=== PATIENT | male | born 1945 | race Caucasian/White ===

== ENCOUNTER → 2016-09-22 | Outpatient (CLI) | payer OTHER ==
[~2016-09-22] MED LIST: ATOR-22 PO; BTP80 PO; CHOL100010 PO; DABI150C PO; DILT-113 PO; FLM4 PO; HYDR-3983 PO; IBUP-1050 PO; MELO15TA10 PO; ONDA8TAB6 PO; SOTA80TA PO
[2016-09-22 13:29] LABS: PARTIAL THROMBOPLASTIN RATIO 1.7
== END | disposition home or self-care (01) ==
LOC: C.LAB 12:21
DX: M16.12 Unilateral primary osteoarthritis, left hip (principal)

== ENCOUNTER 2016-10-01 09:04 | Inpatient (IN) | payer OTHER ==
[2016-09-21 09:26] VITALS: BMI 26.0
[2016-09-21 09:38] VITALS: BMI 26.0
--- NOTE | 2016-09-21 09:59 | PAT Medication Instructions ---
Service Date Sep 21, 2016. Current Home Medication List Atorvastatin (Lipitor), 20 MG PO QAM Cholecalciferol (Vitamin D), 1,000 INTER.UNIT PO Q2D Dabigatran Etexilate Mesylate (Pradaxa), 150 MG PO BID Diltiazem Hcl Ext Rel (Tiazac), 180 MG PO QAM Ibuprofen (Advil), 600 MG PO TID PRN for RN Sotalol Hcl (Betapace *), 40 MG PO BID Tamsulosin Hcl (Flomax *), 0.4 MG PO QPM Medication Instructions For Your Scheduled Surgery Dabigatran Etexilate Mesylate (Pradaxa), 150 MG PO BID (check with surgeon/ master of ceremonies for instructions) Ibuprofen (Advil), 600 MG PO TID PRN for RN (check with surgeon for instructions ) - Hold the following medications the morning of surgery: Cholecalciferol (Vitamin D), 1,000 INTER.UNIT PO Q2D - Take the following medications the morning of surgery with a sip of water: Sotalol Hcl (Betapace *), 40 MG PO BID Diltiazem Hcl Ext Rel (Tiazac), 180 MG PO QAM Atorvastatin (Lipitor), 20 MG PO QAM - Take the following medications as scheduled the night before surgery: Tamsulosin Hcl (Flomax *), 0.4 MG PO QPM Sotalol Hcl (Betapace *), 40 MG PO BID If you have any questions please call us at [phone] (Diane Graham PA-C) or [phone] or [phone]
--- NOTE | 2016-09-21 10:44 | DIAGNOSTIC IMAGING REPORT ---
CHEST PREADMISSION(PA/LAT) CLINICAL HISTORY: PAT COMPARISON STUDY: 01/12/2012 FINDINGS: The bones soft tissues and hemidiaphragms are normal. The cardiomediastinal silhouette is normal. The lungs are clear. The pulmonary vasculature is normal. Prior placement of a cardiac pacer with leads in good position IMPRESSION: Negative chest. Electronically signed by: Tawanda Arellano M.D. 09/21/2016 10:42 AM Dictated Date/Time: 09/21/2016 10:41 AM
[2016-09-21 10:52] LABS: BASO % 0.4 %; BASO ABS # 0.02 K/uL (0-0.2); COMPLETE YES; HEMATOCRIT 39.9 % (42-52); IG% 0.2 %; LYMPH % 24.6 %; LYMPH ABS # 1.15 K/uL (1.2-3.4); MEAN CELL VOLUME 93.7 fL (80-100); MEAN CORPUSCULAR HEMOGLOBIN 32.9 pg (25-34); MEAN CORPUSCULAR HGB CONC 35.1 g/dl (32-36); MEAN PLATELET VOLUME 9.9 fL (7.4-10.4); MONO % 12.8 %; PLATELET COUNT 199 K/uL (130-400); RED BLOOD COUNT 4.26 M/uL (4.7-6.1); WHITE BLOOD COUNT 4.68 K/uL (4.8-10.8)
[2016-09-21 11:07] LABS: URINE APPEARANCE CLEAR (CLEAR); URINE BILIRUBIN NEG (NEG); URINE COLOR YELLOW; URINE NITRITE NEG (NEG); URINE PH 6.5 (4.5-7.5); URINE SPECIFIC GRAVITY 1.009 (1.000-1.030); UROBILINOGEN NEG (NEG)
[2016-09-21 11:17] LABS: INR 1.2 (0.9-1.1); PARTIAL THROMBOPLASTIN RATIO 1.8; PROTHROMBIN TIME (PATIENT) 13.4 SECONDS (9.0-12.0)
[2016-09-21 11:22] LABS: MANUAL MICROSCOPIC REQUIRED? NO; REVIEW REQ? NO
[2016-09-21 12:02] LABS: ESTIMATED AVERAGE GLUCOSE 105 mg/dl; HA1C FLAG Normal (Normal)
--- NOTE | 2016-09-30 12:19 | HISTORY & PHYSICAL EXAMINATION ---
DATE OF ADMISSION: 10/01/2016 CHIEF COMPLAINT: Left hip pain. HISTORY OF PRESENT ILLNESS: The patient is a 71-year-old gentleman with known severe osteoarthritis about his left hip. He had a previous right hip replacement approximately 15 years ago which has done well. He has significant pain and disability with activities of daily living and now desires to proceed with left total hip arthroplasty as well. PAST MEDICAL HISTORY: Irregular heartbeat, osteoarthritis, enlarged prostate. PAST SURGICAL HISTORY: Low back surgery x2, pacemaker implant, right rotator cuff, left rotator cuff x2, right hip as above, bilateral carpal tunnel surgery, right hand surgery. MEDICATIONS: Sotalol 80 mg half tablet 2 times daily, tamsulosin 0.4 mg daily, vitamin D 4000 units weekly, ibuprofen 200 mg 3 capsules 3 times daily p.r.n., Meloxicam 15 mg daily, Pradaxa 150 mg twice daily, Cardizem 180 mg daily, and Lipitor 20 mg daily. ALLERGIES: SULFA WHICH CAUSES A RASH, AMITRIPTYLINE WHICH CAUSES RASH, CEPHALEXIN WHICH CAUSES A RASH. SOCIAL HISTORY: He states weekly alcohol use. REVIEW OF SYSTEMS: Noncontributory. PHYSICAL EXAMINATION: GENERAL: Well-nourished, well-developed elderly male who appears his stated age. HEAD, EYES, EARS, NOSE, AND THROAT: Normocephalic, atraumatic. Extraocular movements intact. Oropharynx pink and moist. NECK: Supple without adenopathy. LUNGS: Clear to auscultation bilaterally. HEART: Regular rate and rhythm. ABDOMEN: Soft, nontender, nondistended. EXTREMITIES: The upper extremities are within normal limits. Left hip demonstrates limited range of motion. There is significant limitation of active and passive internal/external rotation with pain. X-RAYS: X-rays were reviewed. He has a well-aligned, well-fixed total hip on the right. He has instrumentation in his lumbar spine. Left hip demonstrates severe osteoarthritis with complete loss of the joint space. There is osteophyte formation about the femoral head and acetabulum. ASSESSMENT: Left hip degenerative joint disease. PLAN: Risks versus benefits were discussed. Consent was obtained. The patient's primary care physician is Dr. Mccarthy. His physical trainer is Dr. Nazario. Will proceed with left total hip arthroplasty upon preoperative workup and medical clearance. [facility] HEALTH SYSTEMDelmer
[~2016-10-01] VITALS: Ht 165.1 cm; Wt 76.8 kg
[2016-10-01] MEDS: TRANEXAMIC ACID INJ 1,000 MG in SODIUM CHLORIDE 0.9% 100ML 100 ML IV SCH ×2 (06:30→12:00)
[~2016-10-01 09:04] MED LIST changes: +ACETAMINOPHEN 500 MG TAB PO SCH; +BUPIVACAINE 0.5 % 5 MG/1 ML PF 10ML VIAL ONE; +DEXAMETHASONE 4 MG TAB PO SCH; +FAMOTIDINE 20 MG TAB PO SCH; -HYDR-3983 PO; +LACTATED RINGER'S 1000ML 1,000 ML IV SCH; +LACTATED RINGER'S 1000ML 500 ML IV ONE; -MELO15TA10 PO; +MIDAZOLAM HCL 1 MG/ML 2ML VIAL ONE; +MISSING PHYSICIAN SIGNATURE ON ORDER SCH; -ONDA8TAB6 PO; +ROPIVACAINE 5MG/ML 30 ML 150 MG, BUPIVACAINE/EPINEPHR 0.5% MPF 30 ML, KETOROLAC TROMETH... INFIL SCH; -SOTA80TA PO; +VANCOMYCIN 1GM/270ML NSS 270 ML IV SCH; +VANCOMYCIN INJ 1,100 MG in SODIUM CHLORIDE 0.9% 250ML 250 ML IV SCH
[2016-10-01 09:41] VITALS: BP 155/98; PULSE 136; TEMP 36.6; O2SAT 98; BMI 26.0
--- NOTE | 2016-10-01 09:53 | History & Physical Bridge Note ---
H&P Re-Evaluation Bridge Note: I have examined the patient, reviewed the History & Physical and in the interval since the performance of the History & Physical I have noted the following changes of clinical significance: No changes noted
[2016-10-01] MEDS ORDERED: METOPROLOL TARTRATE 1 MG/ML VIAL ONE ×2 (10:32→10:40)
--- NOTE | 2016-10-01 11:17 | Anesthesiology Progress Note ---
Anesthesia Progress Note Date of Service Oct 01, 2016. Progress Notes The patient was scheduled for a L MICHAEL by Dr. Hughes. Upon arrival, the preop nurse noted that he was tachycardic on his rhythm strip. A 12 lead EKG was ordered that showed new onset aflutter with RVR at a rate of 137. The patient' s other vital signs were stable. SpO2 98 with BP 140s/100s. The patient has no chest pain or SOB. He feels fine otherwise. Dr. Herr was consulted and came to evaluate the patient. The patient was given a total of 15 mg IV metoprolol which brought his HR down to 127. The patient will be admitted overnight to telemetry where Dr. Herr will attempt to control his HR. He will be placed on a heparin gtt. The patient may have the procedure tomorrow if he is able to be rate controlled overnight and his other vital signs remain stable.
[2016-10-01] MEDS ORDERED: SOTALOL HCL 80 MG TAB PO ONE (11:30)
[2016-10-01] MEDS ORDERED: POLYETHYLENE (MIRALAX) 17 GM PACK PO PRN (11:45)
[2016-10-01] MEDS ORDERED: MELO15TA10 PO (11:45)
[2016-10-01] MEDS ORDERED: ONDANSETRON INJ 2 MG/ML 2 ML VIAL IV PRN (11:45)
[2016-10-01] MEDS ORDERED: ACETAMINOPHEN 325 MG TAB PO PRN (11:45)
--- NOTE | 2016-10-01 12:12 | CARDIOLOGY CONSULTATION ---
DATE OF CONSULTATION: 10/01/2016 DATE OF CONSULTATION: 10/01/2016. REFERRING PHYSICIAN: Dr. Hughes. PRIMARY CARE PHYSICIAN: Dr. Mccarthy. PRIMARY INSPECTOR PLUG SEAM: Dr. Nazario. INDICATIONS: Atrial flutter with rapid ventricular response. HISTORY OF PRESENT ILLNESS: The patient is a 71-year-old male whose past medical history is notable for paroxysmal Afib flutter with past tachybrady syndrome on chronic anticoagulation with Pradaxa, chronic antiarrhythmic therapy with sotalol, controlled predominantly in sinus rhythm though notes having increasing episodes of atrial flutter on pacemaker interrogations in the past several months. He presented this morning after routine evaluation as an outpatient in the preoperative setting for planned orthopedic surgery. On presentation to the preoperative area, he was found to be in atrial flutter with rapid ventricular response, rates 125 to 135. The patient is asymptomatic and not aware of the irregular heart rhythm but does feel "jittery" or jumping when heart is beating such. Anticoagulation has been held for 5 days in anticipation of orthopedic procedure. Notes no acute neurologic complaints. Notes no chest pain, shortness of breath. Notes no fevers, chills or productive cough. Notes no melena, hematochezia, dysuria or hematuria. Has been taking medications faithfully and took medications as recommended this morning. Appetite and weight have been stable. REVIEW OF SYSTEMS: Otherwise negative. ALLERGIES: AMITRIPTYLINE, CEPHALEXIN, SULFA. MEDICATIONS: Prior to presentation were tamsulosin 0.4 mg p.o. daily, Pradaxa 150 mg b.i.d., diltiazem 180 mg p.o. daily, atorvastatin 20 mg p.o. daily, sotalol 40 mg b.i.d., ibuprofen p.r.n., vitamin D p.r.n. PAST SURGICAL HISTORY: Notable for prior dual chamber pacemaker insertion in 2011, past right hip replacement in 2003, lumbar disc surgery in 2008, repair rotator cuff in 2007 x3, re-operated lumbar area 2012, carpal tunnel surgery bilaterally. FAMILY HISTORY: Notable for hypertension and father history of stroke. SOCIAL HISTORY: The patient is a prior smoker, discontinued in 1993. He drinks 2-3 beers per day on occasion. PHYSICAL EXAMINATION: GENERAL: The patient is currently comfortable, seen in the preoperative holding area. VITAL SIGNS: Heart rate as noted was 130, blood pressure is 162/100. HEAD, EYES, EARS, NOSE, AND THROAT EXAMINATION: Normocephalic, atraumatic. Nares without discharge. NECK: Thin. There is no distinct jugular venous distention. LUNGS: Reveal diminished breath sounds that are clear. CARDIOVASCULAR EXAMINATION: Irregular, irregular. There is no S3 gallop. Pacemaker site is without tenderness. ABDOMEN: Soft, nontender. EXTREMITIES: Without cyanosis or clubbing. There is no peripheral edema. There are intact distal pulses. LABORATORY DATA: Pending. EKG demonstrates atrial flutter with rapid ventricular response, rate 137 with 2:1 AV conduction. Telemetry after 15 mg IV metoprolol demonstrated only minimal slowing, transient break to 4:1 conduction atrial flutter. EKG preoperatively demonstrated atrial paced rhythm with prolonged AV conduction as appropriate. QT corrected was 471. IMPRESSION: A 71-year-old male presents with planned orthopedic surgery, found to have relapsed into prior history of atrial flutter with rapid ventricular response on presentation. PLAN: Will increase sotalol dosing. Will admit to hospital with IV heparin with anticoagulation. Keep n.p.o. after midnight with reassessment of the orthopedic plans in a.m. depending on clinical course, rate control and rhythm control. Electrolytes and laboratory studies will be ordered. Will follow patient in the hospital.
[2016-10-01 12:23] LABS: BASO % 0.4 %; BASO ABS # 0.02 K/uL (0-0.2); COMPLETE YES; EOS % 4.4 %; HEMATOCRIT 39.4 % (42-52); LYMPH % 24.4 %; LYMPH ABS # 1.33 K/uL (1.2-3.4); MEAN CELL VOLUME 92.7 fL (80-100); MEAN CORPUSCULAR HEMOGLOBIN 32.2 pg (25-34); MEAN CORPUSCULAR HGB CONC 34.8 g/dl (32-36); MEAN PLATELET VOLUME 10.1 fL (7.4-10.4); MONO % 8.8 %; PLATELET COUNT 174 K/uL (130-400); RED BLOOD COUNT 4.25 M/uL (4.7-6.1); WHITE BLOOD COUNT 5.46 K/uL (4.8-10.8)
[2016-10-01 12:29] LABS: INR 1.1 (0.9-1.1); PROTHROMBIN TIME (PATIENT) 11.9 SECONDS (9.0-12.0)
[2016-10-01 12:30] VITALS: BP 155/82; PULSE 84; TEMP 36.6; O2SAT 97; Ht 165.1 cm; Wt 76.8 kg
[2016-10-01] MEDS ORDERED: HEPARIN IV BOLUS 4,000 UNIT in SYRINGE 0 ML IV ONE (12:30)
[2016-10-01 12:45] LABS: BUN/CREATININE RATIO 11.8 (10-20); CALCIUM 8.9 mg/dl (8.5-10.1); CREATININE 1.1 mg/dl (0.60-1.40); MAGNESIUM 2.1 mg/dl (1.8-2.4); POTASSIUM 4.7 mmol/L (3.5-5.1)
[2016-10-01 12:56] LABS: ALB/GLOB RATIO 1.3 (0.9-2); THYROID STIMULATING HORMONE 0.792 uIu/ml (0.300-4.500)
[2016-10-01 13:01] LABS: PARTIAL THROMBOPLASTIN RATIO 1.1
[2016-10-01] MEDS: HEPARIN 25,000 UNIT/500ML D5W 500 ML IV PRN ×2 (13:07→20:25)
--- NOTE | 2016-10-01 13:08 | History and Physical ---
History & Physical Date & Time of Service: Oct 01, 2016 at 12:03 Chief Complaint: Left Hip Osteoarthritis Primary Care Physician: Tawanda Mccarthy M.D. History of Present Illness Source: patient, hospital records This is a 71 y/o male with PMH of paroxysmal Afib on Pradaxa, tachy dylon syndrome s/p pacemaker, BPH, severe OA left hip, who presented today for planned left hip replacement and was found to be in atrial flutter with RVR. Pt c/o left hip pain but otherwise is feeling well. He admits to some anxiety coming in for surgery this morning. He typically is not able to tell when he is in AF. He denies GARCIA, vision change, numbness, weakness, lightheadedness, palpitations, chest pain, SOB, DEL ANGEL, orthopnea, edema, weight gain, fever, chills , URI symptoms, cough, abdominal pain, N/V/D, urinary changes, rash, abnormal bleeding. No hx of HTN, DM, CHF, or CVA. Past Medical/Surgical History Medical Problems: (1) BPH (benign prostatic hypertrophy) Status: Chronic (2) Fibromyalgia Status: Chronic (3) Hyperlipidemia Status: Chronic (4) Osteoarthritis Status: Chronic (5) Paroxysmal atrial fibrillation Status: Chronic (6) Tachy-dylon syndrome Status: Chronic Surgical Problems: (1) History of carpal tunnel surgery Status: Chronic (2) History of right hip replacement Status: Chronic (3) S/P cardiac pacemaker procedure Status: Chronic (4) S/P finger joint replacement Status: Chronic (5) S/P lumbar fusion Status: Chronic (6) S/P rotator cuff repair Status: Chronic Family History Hypertension FATHER MOTHER Stroke FATHER Social History Smoking Status: Former Smoker (quit 1990 prior 1 ppd x 30 years) Alcohol Use: none (4 beers per day. last drink yesterday. no hard liquor. denies h/o withdrawal/ tremors. advised to decrease etoh intake. ) Drug Use: none Housing status: lives alone Occupational Status: employed Immunizations History of Influenza Vaccine: Yes Influenza Vaccine Date: May 22, 2012 History of Tetanus Vaccine?: Yes History of Pneumococcal: Yes Pneumococcal Date: May 22, 2002 History of Hepatitis B Vaccine: Yes Multi-Drug Resistant Organisms History of MDRO: No Allergies Coded Allergies: Sulfa Drugs (Verified Allergy, Intermediate, HIVES, 09/21/16) ALL SULFIDES Amitriptyline (Verified Allergy, Unknown, rash, 09/21/16) Cephalexin (Verified Allergy, Unknown, rash, 09/21/16) Home Medications Scheduled Atorvastatin (Lipitor), 20 MG PO QAM Cholecalciferol (Vitamin D), 1,000 INTER.UNIT PO Q2D Dabigatran Etexilate Mesylate (Pradaxa), 150 MG PO BID Diltiazem Hcl Ext Rel (Tiazac), 180 MG PO HS Meloxicam (Mobic), 1 TAB PO DAILY Sotalol Hcl (Betapace *), 40 MG PO BID Tamsulosin Hcl (Flomax *), 0.4 MG PO QPM Scheduled PRN Ibuprofen (Advil), 600 MG PO TID PRN for Pain Review of Systems Ten point ROS performed with pertinent positives and negatives noted in HPI. Physical Exam Vital Signs Date Time Temp Pulse Resp B/P Pulse Ox O2 Delivery O2 Flow Rate FiO2 10/01/16 11:50 64 20 146/78 97 Room Air 10/01/16 11:45 36.7 127 20 137/107 97 Room Air 10/01/16 11:35 125 20 150/104 97 Room Air 10/01/16 11:27 112 20 140/96 97 Room Air 10/01/16 11:20 126 20 155/103 99 Room Air 10/01/16 11:09 122 20 162/104 96 Room Air 10/01/16 10:56 20 131/101 100 Nasal Cannula 2 10/01/16 10:50 137 20 156/104 100 Nasal Cannula 2 10/01/16 10:45 137 20 150/105 99 Nasal Cannula 2 10/01/16 10:38 138 156/109 10/01/16 10:35 138 22 156/109 99 Nasal Cannula 2 10/01/16 10:25 20 155/110 100 Nasal Cannula 2 10/01/16 10:20 121 20 151/84 99 Nasal Cannula 2 10/01/16 10:15 137 22 150/105 100 Nasal Cannula 2 10/01/16 10:07 140/97 10/01/16 10:05 137 20 149/101 98 Room Air 10/01/16 10:00 137 20 137/94 98 Room Air 10/01/16 09:41 36.6 136 20 155/98 98 Room Air General Appearance: WD/WN, no apparent distress, + pertinent finding (pleasant alert 71 y/o male, daughter at bedside) Head: normocephalic, atraumatic Eyes: normal inspection, PERRL, EOMI ENT: hearing grossly normal, pharynx normal Neck: supple, no JVD, trachea midline Respiratory/Chest: lungs clear, normal breath sounds, no respiratory distress, + pertinent finding (pacemaker in place) Cardiovascular: no murmur, normal peripheral pulses, + tachycardia, + irregularly irregular Abdomen/GI: normal bowel sounds, non tender, soft Extremities/Musculoskelatal: no calf tenderness, no pedal edema Neurologic/Psych: alert, normal mood/affect, oriented x 3, + pertinent finding (grossly nonfocal ) Skin: normal color, warm/dry Diagnostics Laboratory Results Results Past 24 Hours Test 10/01/16 11:19 10/01/16 11:35 10/01/16 11:42 Range/Units EKG aflutter with RVR rate 137 with 2:1 AV conduction Impression Assessment and Plan ATRIAL FLUTTER WITH RVR Noted in perioperative setting when presented for planned L hip replacement Pradaxa has been held for 5 days for upcoming surgery HR up to 130s -> Given total 15 mg IV Lopressor -> improved to 110s Check CBC, PRP, mag, TSH, UA Cardiology consulted and has seen patient; appreciate input Sotalol increased to 80 mg BID Initiate IV heparin NPO after midnight HYPERTENSION BP elevated ? secondary to anxiety, hip pain PRN hydralazine ordered for SBP >160 LEFT HIP OA [place] ordered for pain control NPO after midnight in case he is stable for surgery tomorrow Consult Dr. Saul HOOD DYLON SYNDROME S/P PACEMAKER HYPERLIPIDEMIA Continue statin BPH Continue Flomax VIT D DEFICIENCY Continue Vit D supplementation FULL CODE per my discussion with the patient Patient seen in collaboration with Dr. Castillo. Please see her addendum. ADDENDUM: I have seen and examined the patient and have discussed the case with the provider above. I agree with the assessment and plan as stated. At 1400, the patient converted into sinus rhythm. Labs were reviewed and were within normal limits. Defer rate and rhythm control strategies to Dr. Herr. If maintains sinus rhythm, will likely be considered OK for surgery in am. Ordered NPO after midnight in preparation for this. Of note, patient reports 4 beers daily, so will be monitor closely for withdrawal symptoms which may be related to aflutter. Graciela Castillo DO Hospitalist Level of Care Telemetry Advanced Directives Existing Living Will: Yes Existing Power of Travel Money Advisor: Yes Resuscitation Status FULL RESUSCITATION VTE Prophylaxis VTE Risk Assessment Done? Y/N: Yes Risk Level: Moderate Given or contraindicated: Other Anticoagulation (heparin infusion)
[2016-10-01] MEDS ORDERED: HydrALAZINE HCL 20 MG/ML VIAL IV. PRN (13:15)
[2016-10-01 15:17] VITALS: BP 126/75; PULSE 65; TEMP 37.2; O2SAT 95
[2016-10-01 15:33] LABS: URINE APPEARANCE CLEAR (CLEAR); URINE BILIRUBIN NEG (NEG); URINE COLOR YELLOW; URINE NITRITE NEG (NEG); URINE SPECIFIC GRAVITY 1.006 (1.000-1.030); UROBILINOGEN NEG (NEG); ZZUR CULT IF INDIC CLEAN CATCH NO
[2016-10-01 15:40] LABS: MANUAL MICROSCOPIC REQUIRED? NO; REVIEW REQ? NO
[2016-10-01] MEDS: SOTALOL HCL 80 MG TAB PO SCH (16:12)
[2016-10-01 19:17] VITALS: BP 125/50; PULSE 70; TEMP 36.8; O2SAT 96
[2016-10-01] MEDS: TAMSULOSIN HCL 0.4 MG CAP PO SCH (19:26)
[2016-10-01 19:50] LABS: PARTIAL THROMBOPLASTIN RATIO 1.7
[2016-10-01] MEDS ORDERED: HEPARIN IV BOLUS 3,000 UNIT in SYRINGE 0 ML IV SCH (20:15)
[2016-10-01 23:44] VITALS: BP 138/74; PULSE 64; TEMP 37; O2SAT 96
[2016-10-02] VITALS (11 sets, daily range): BP systolic 103–163; BP diastolic 54–77; PULSE 58–90; TEMP 36.4–37; O2SAT 93–97
[2016-10-02 02:50] LABS: PARTIAL THROMBOPLASTIN RATIO 2.4
[2016-10-02] MEDS ORDERED: HEPARIN IV BOLUS 3,000 UNIT in SYRINGE 0 ML IV ONE (03:00)
[2016-10-02] MEDS ORDERED: BUPIVACAINE 0.5 % 5 MG/1 ML PF 10ML VIAL ONE (08:05)
[2016-10-02] MEDS: SOTALOL HCL 80 MG TAB PO SCH ×2 (08:46→16:52)
[2016-10-02] MEDS: TAMSULOSIN HCL 0.4 MG CAP PO SCH (08:47)
[2016-10-02] MEDS: ATORVASTATIN 20 MG TAB PO SCH (08:47)
[2016-10-02] MEDS: CHOLECALCIFEROL 1000 INTER.UNIT TAB PO SCH (08:47)
--- NOTE | 2016-10-02 10:35 | PROGRESS NOTE ---
DATE: 10/02/2016 CARDIOLOGY CONSULTATION FOLLOWUP NOTE SUBJECTIVE: The patient seen and examined. Chart, medications, telemetry reviewed. SUBJECTIVE: The patient feels well this morning. Notes no difficulties or complaints. He spontaneously converted back to sinus rhythm yesterday afternoon and has had no further atrial fibrillation or flutter. Notes no dizziness or lightheadedness. Blood pressure is up just slightly this morning and dissipates on proceeding with left hip replacement as planned later today. Anticoagulation has been held this morning. OBJECTIVE: Is VITAL SIGNS: Heart rate 60, blood pressure is 163/77. Telemetry reveals sinus rhythm with intermittent atrial pacing. No further tachyarrhythmias. NECK: Thin. There is no jugular venous distention at 30 degrees. LUNGS: Clear. CARDIOVASCULAR: Regular with normal S1, S2. There is no S3 gallop. ABDOMEN: Soft, nontender. EXTREMITIES: Without cyanosis or clubbing. There is no peripheral edema. LABORATORY DATA: EKG this morning demonstrates sinus rhythm with atrial ectopy, intermittent atrial pacing, and nonspecific lateral ST-segment changes. IMPRESSION: The patient is a 71-year-old male with history of paroxysmal atrial fibrillation and flutter with tachybrady syndrome, controlled, predominantly in sinus rhythm with sotalol. He presented for planned elective left hip replacement, off anticoagulation and yesterday was found to be in atrial flutter with rapid ventricular response on initial presentation. The patient since adjustments of medical therapies has spontaneous return to sinus rhythm. He has been anticoagulated with IV heparin overnight which will be held in anticipation of proceeding with left hip surgery. Will plan on maintaining telemetry at least 2-3 days post-surgery given adjustment to sotalol upward. Medications will be optimized during this hospitalization, specifically diltiazem has been discontinued and sotalol has been increased to 80 mg twice per day. We will anticipating adding DEVI inhibitor during this course of admission for blood pressure maintenance as an outpatient. Not administered today in anticipation of upcoming surgery. Will follow the patient in the hospital. KELSY
[2016-10-02] MEDS ORDERED: POVIDONE-IODINE OP SOLN 30 ML BTL ONE (11:33)
[2016-10-02] MEDS ORDERED: ORTHO JOINT ANESTHETIC ONE (11:33)
[2016-10-02] MEDS ORDERED: BACITRACIN 50000 UNIT VIAL ONE (11:34)
[2016-10-02] MEDS ORDERED: ONDANSETRON INJ 2 MG/ML 2 ML VIAL ONE (11:46)
[2016-10-02] MEDS ORDERED: DEXAMETHASONE SOD INJ 4 MG/ML VIAL ONE (11:46)
[2016-10-02] MEDS ORDERED: FENTANYL CITRATE INJ 50 MCG/1 ML 2 ML VIAL ONE (11:46)
[2016-10-02] MEDS ORDERED: ROCURONIUM BROMIDE 10 MG/ML 5 ML VIAL ONE (11:46)
[2016-10-02] MEDS ORDERED: MIDAZOLAM HCL 1 MG/ML 2ML VIAL ONE ×2 (11:46→12:52)
[2016-10-02] MEDS ORDERED: PHENYLEPHRINE HCL INJ 10 MG/ML VIAL ONE (11:46)
[2016-10-02] MEDS ORDERED: NEOSTIGMINE METHYLSULFATE 5 MG/5 ML SYR ONE (11:46)
[2016-10-02] MEDS ORDERED: GLYCOPYRROLATE INJ 0.2 MG/ML VIAL ONE (11:46)
[2016-10-02] MEDS ORDERED: PROPOFOL IV EMULSION 10 MG/ML 20 ML VIAL IV ONE ×2 (11:46→13:12)
[2016-10-02] MEDS ORDERED: LIDOCAINE HCL 2% 2 ML VIAL (20MG/ML) ONE (11:46)
[2016-10-02] MEDS ORDERED: SUCCINYLCHOLINE CHLORIDE 20 MG/ML 10 ML VIAL IV ONE (11:46)
[2016-10-02] MEDS ORDERED: EpHEDrine SULFATE INJ 50 MG/ML AMP ONE (11:46)
[2016-10-02] MEDS ORDERED: ROPIVACAINE 5MG/ML 30 ML 150 MG, BUPIVACAINE/EPINEPHR 0.5% MPF 30 ML, KETOROLAC TROMETH... INFIL SCH ×7 (12:00)
[2016-10-02] MEDS ORDERED: CEFAZOLIN IV 2,000 MG/60 ML D5W IV ONE (12:03)
--- NOTE | 2016-10-02 12:17 | Progress Note ---
Internal Med Progress Note Date of Service: Oct 02, 2016. Provider Documentation: SUBJECTIVE: Patient is doing well Denies any palpitations, chest pain, SOB, nausea, vomiting Tele- NSR,Rate controlled OBJECTIVE: Vital Signs-as noted below Exam: General-AAOX3, no distress Neck-Supple, No JVD Lungs-AEBE, no wheezing, crackles Heart-S1, S2 normal, no murmurs Extremities-No edema Lab data as noted below. ASSESSMENT & PLAN: Assessment and Plan : ATRIAL FLUTTER WITH RVR: Now NSR Noted in perioperative setting when presented for planned L hip replacement Pradaxa has been held for 5 days for upcoming surgery HR up to 130s -> Given total 15 mg IV Lopressor -> Increased Sotalol to 80 mg PO BID -Cardiology on board. Appreciate inputs LEFT HIP OA For surgery today -Consult Dr. Hughes HYPERTENSION -Stable -PRN hydralazine ordered for SBP >160 TACHY RENUKA SYNDROME S/P PACEMAKER -Mx as above HYPERLIPIDEMIA -Continue statin BPH -Continue Flomax VIT D DEFICIENCY -Continue Vit D supplementation FULL CODE per my discussion with the patient DISPOSITION Continue with tele monitoring post operatively Vital Signs: Date Time Temp Pulse Resp B/P Pulse Ox O2 Delivery O2 Flow Rate FiO2 10/02/16 07:32 36.8 60 20 163/77 96 Room Air 10/02/16 04:00 Room Air 10/02/16 03:45 36.8 62 19 134/73 95 Room Air 10/02/16 00:00 Room Air 10/01/16 23:44 37.0 64 17 138/74 96 Room Air 10/01/16 20:00 Room Air 10/01/16 19:17 36.8 70 16 125/50 96 Room Air 10/01/16 16:00 Room Air 10/01/16 15:17 37.2 65 18 126/75 95 Room Air 10/01/16 12:30 36.6 84 20 155/82 97 Room Air Lab Results: Results Past 24 Hours Test 10/01/16 15:10 10/01/16 19:22 10/02/16 02:16 10/02/16 05:50 Range/Units Urine Color YELLOW Urine Appearance CLEAR CLEAR Urine pH 6.0 4.5-7.5 Urine Specific [place] 1.006 1.000-1.030 Urine Protein NEG NEG Urine Glucose (UA) NEG NEG Urine Ketones NEG NEG Urine Occult Blood NEG NEG Urine Nitrite NEG NEG Urine Bilirubin NEG NEG Urine Urobilinogen NEG NEG Urine Leukocyte Esterase NEG NEG Activated Partial Thromboplast Time 43.5 62.0 52.8 21.0-31.0 SECONDS Partial Thromboplastin Ratio 1.7 2.4 2.0 Test 10/02/16 12:03 Range/Units
[2016-10-02] MEDS ORDERED: ATROPINE SULFATE 0.1 MG/ML 5ML SYR IV PRN (12:30)
[2016-10-02] MEDS ORDERED: FENTANYL CITRATE INJ 50 MCG/1 ML 2 ML VIAL IV PRN (12:30)
[2016-10-02] MEDS ORDERED: EpHEDrine SULFATE INJ 50 MG/ML AMP IV PRN (12:30)
[2016-10-02] MEDS ORDERED: ONDANSETRON INJ 2 MG/ML 2 ML VIAL IV PRN ×2 (12:30→14:30)
[2016-10-02 12:35] LABS: INR 1.1 (0.9-1.1); PARTIAL THROMBOPLASTIN RATIO 1.1; PROTHROMBIN TIME (PATIENT) 11.8 SECONDS (9.0-12.0)
[2016-10-02] MEDS ORDERED: NURSING VERBAL MED ORDER STA (12:46)
[2016-10-02] MEDS: TRANEXAMIC ACID INJ 1,000 MG in SODIUM CHLORIDE 0.9% 100ML 100 ML IV SCH ×2 (13:00→13:10)
[2016-10-02] MEDS ORDERED: HydrALAZINE HCL 20 MG/ML VIAL ONE (13:12)
--- NOTE | 2016-10-02 14:25 | [facility] Post Operative Brief Note ---
Immediate Operative Summary Operative Date Oct 02, 2016. Pre-Operative Diagnosis Left hip degenerative joint disease Post-Operative Diagnosis Left hip degenerative joint disease Procedure(s) Performed Left total hip arthroplasty- Uncemented Surgeon Dr. Shlomo Hughes Sugar Mixer Surgeon(s) None Estimated Blood Loss 150ML Findings severe OA Specimens A. Left Femur head Disposition Recovery Room / PACU
[2016-10-02] MEDS ORDERED: MAGNESIUM HYDROXIDE SUSP 30 ML UDC PO PRN (14:30)
[2016-10-02] MEDS ORDERED: BISACODYL 10 MG SUPP PR PRN (14:30)
[2016-10-02] MEDS ORDERED: ALUMINUM/MAGNESIUM/SIMETH (MAALOX MAX) 30 ML UDC PO PRN (14:30)
[2016-10-02] MEDS ORDERED: ZOLPIDEM TARTRATE 5 MG TAB PO PRN (14:30)
[2016-10-02] MEDS ORDERED: DiphenhydrAMINE HCL 50 MG/ML VIAL IV PRN (14:30)
--- NOTE | 2016-10-02 14:48 | DIAGNOSTIC IMAGING REPORT ---
LEFT PELVIS/UNILATERAL HIP 1 VIEW CLINICAL HISTORY: IN PACU - A/P PELVIS and LATERAL HIP INCLUDING ALL OF IMPLANT joint replacement COMPARISON: None. DISCUSSION: Evidence for a total left hip replacement. Good contact between prosthetic and underlying bone. Surgical drains are in position. Evidence for total right hip replacement. Postoperative changes involving the low lumbar spine. Expected soft tissue postoperative change IMPRESSION: Anatomic alignment status post total left hip replacement Electronically signed by: Tawanda Arellano M.D. 10/02/2016 2:47 PM Dictated Date/Time: 10/02/2016 2:46 PM
--- NOTE | 2016-10-02 15:08 | Anesthesiology Progress Note ---
Anesthesia Post Op Note Date & Time Oct 02, 2016 at 15:07 Vital Signs Pain Intensity: 0 Vital Signs Past 12 Hours Date Time Temp Pulse Resp B/P Pulse Ox O2 Delivery O2 Flow Rate FiO2 10/02/16 14:59 37 10/02/16 14:56 16 147/68 10/02/16 14:55 60 14 100 10/02/16 14:55 60 14 10/02/16 14:50 60 14 10/02/16 14:50 60 14 149/70 100 10/02/16 14:45 61 14 10/02/16 14:45 60 14 152/65 100 10/02/16 14:41 151/64 10/02/16 14:40 59 17 10/02/16 14:40 64 17 100 10/02/16 14:36 132/92 10/02/16 14:35 60 17 10/02/16 14:35 Room Air 10/02/16 14:35 60 17 100 10/02/16 14:30 68 17 10/02/16 14:30 61 17 137/84 100 10/02/16 14:26 129/66 10/02/16 14:25 36.6 63 16 129/66 100 Mask 10 10/02/16 08:00 96 Room Air 2.0 10/02/16 07:32 36.8 60 20 163/77 96 Room Air 10/02/16 04:00 Room Air 10/02/16 03:45 36.8 62 19 134/73 95 Room Air Notes Mental Status: alert / awake / arousable, participated in evaluation Pt Amnestic to Procedure: Yes Nausea / Vomiting: adequately controlled Pain: adequately controlled Airway Patency, RR, SpO2: stable & adequate BP & HR: stable & adequate Hydration State: stable & adequate Neuraxial Anesthesia: was administered, sensory block is resolving Anesthetic Complications: no major complications apparent
--- NOTE | 2016-10-02 16:29 | OPERATIVE REPORT ---
DATE OF OPERATION: 10/01/2016 PREOPERATIVE DIAGNOSIS: Osteoarthritis, left hip. POSTOPERATIVE DIAGNOSIS: Osteoarthritis, left hip. PROCEDURE: Left connective total hip arthroplasty. SURGEON: Dr. Hughes. SINTER PRESS OPERATOR: Jose Ribera PA-C. ANESTHESIA: spinal COMPLICATIONS: None. PROCEDURE: Following induction of adequate spional anesthesia, the patient was placed in right lateral decubitus position and left Jeremias-Langenbeck incision was made. Subcutaneous tissue was sharply dissected. Electrocautery used for hemostasis. The fascia was incised throughout the length of the wound and a campuzano scissor placed beneath the short external rotators. The pyriformis was tagged with #1 Vicryl. The short external rotators were divided from the posterior aspect of the femur using electrocautery. These were swept posteriorly. A T-capsulotomy incision was made and the hip was dislocated using a combination of flexion, adduction, and internal rotation. Exposure of the femoral neck with old-style Hohmann and a blunt Hohmann was carried out and a femoral rasp was utilized as a guide for making the appropriate level femoral neck cut. This bone fragment was removed and reserved on the back table. Next, attention was turned to the acetabulum where bone hook was used to retract the femur while the offset retractors were placed anterior and posteriorly. A double-angled Hohmann was placed in superior and anterior position exposing the acetabulum nicely. Acetabular labrum as well as posterior capsule elements were removed using a long knife and a long pickup. Fovea centralis was cleared of all soft tissue. Sequential reamings were carried up to a 52 and decision was made to proceed with impaction of a 52 trabecular metal cup. This was impacted and held using a single 35 mm bone screw. The acetabular liner was placed with 15 of elevated posterior wall in the superior and posterior position. Next, attention was turned to the femoral portion of the case where a Bovie and pickup was used to further clear short external rotators from their insertion on the femur. Box osteotome was used to gain access to the femoral canal and the T-handled rasp and a rattail rasp were used to further open and lateral the canal. Sequentially raspings were carried up to a 52 which gave good fit and fill of the proximal femur. A trial reduction was carried out and 4 offset femoral neck component was chosen as the size to be used. A -5 mm ceramic femoral head was impacted into position, +0 head was utilized. The trial reduction was stable in all degrees of rotation with no [id number] impingement. The hip was dislocated. The trial components were removed and the final femoral stem, neck, and femoral head combination were assembled on the back table and impacted into position. Hip was relocated. Range of motion checked once again successful and the wound was irrigated. The pyriformis repaired to the greater trochanter using #1 Vicryl [id number] suture. A Hemovac drain was placed and the fascia was closed using #1 Vicryl, subcutaneous tissue was closed using 0 Dexon, and skin was closed with dinora. Sterile dressing of Adaptic, 4 x 4's, ABDs, and foam tape was applied. The patient tolerated the procedure well. Due to the complex nature of the procedure, the entire surgery was performed with the operational assistance of Jose Ribera PA-C. The assistant manager pt, under direct supervision, was involved in the actual performance of all aspects of the surgical procedure including hemostasis, tissue retraction and incision, instrument management, patient positioning, and wound closure. I attest to the content of the Intraoperative Record and any orders documented therein. Any exceptions are noted below. KELSY
[2016-10-02] MEDS: FERROUS GLUCONATE 324 MG TAB PO SCH (16:49)
[2016-10-02] MEDS: HYDROCODONE/ACETAMINOPHEN 7.5/325MG TAB PO PRN ×3 (17:51→23:48)
[2016-10-02] MEDS: DOCUSATE SODIUM 100 MG CAP PO SCH (20:56)
[2016-10-02] MEDS: SENNA 8.6 MG TAB PO SCH (20:56)
[2016-10-02] MEDS ORDERED: NURSING VERBAL MED ORDER ONE (21:30)
[2016-10-02] MEDS ORDERED: HYDROmorphone INJ 1 MG/ML SYR IV STA (21:40)
[2016-10-02] MEDS ORDERED: KETOROLAC TROMETHAMINE 15 MG/ML VIAL IV. STA (21:41)
[2016-10-02] MEDS ORDERED: VANCOMYCIN INJ 1,100 MG in SODIUM CHLORIDE 0.9% 250ML 250 ML IV ONE (22:00)
[2016-10-03] VITALS (7 sets, daily range): BP systolic 96–159; BP diastolic 54–69; PULSE 61–82; TEMP 36.4–36.9; O2SAT 91–99
[2016-10-03] MEDS ORDERED: HYDROmorphone INJ 0.5 MG/0.5 ML SYR ONE (03:36)
[2016-10-03 05:38] LABS: HEMATOCRIT 35.2 % (42-52); MEAN CELL VOLUME 93.1 fL (80-100); MEAN CORPUSCULAR HEMOGLOBIN 32.5 pg (25-34); MEAN CORPUSCULAR HGB CONC 34.9 g/dl (32-36); MEAN PLATELET VOLUME 9.6 fL (7.4-10.4); PLATELET COUNT 165 K/uL (130-400); RED BLOOD COUNT 3.78 M/uL (4.7-6.1); WHITE BLOOD COUNT 10.56 K/uL (4.8-10.8)
[2016-10-03 06:06] LABS: BUN/CREATININE RATIO 17.6 (10-20); CALCIUM 8.4 mg/dl (8.5-10.1); CREATININE 1.2 mg/dl (0.60-1.40); POTASSIUM 4.3 mmol/L (3.5-5.1)
[2016-10-03] MEDS: HYDROCODONE/ACETAMINOPHEN 7.5/325MG TAB PO PRN ×2 (08:50→17:03)
[2016-10-03] MEDS: DOCUSATE SODIUM 100 MG CAP PO SCH ×2 (08:50→20:27)
[2016-10-03] MEDS: SOTALOL HCL 80 MG TAB PO SCH ×2 (08:50→17:00)
[2016-10-03] MEDS: ATORVASTATIN 20 MG TAB PO SCH (08:50)
[2016-10-03] MEDS: FERROUS GLUCONATE 324 MG TAB PO SCH ×3 (08:51→17:03)
--- NOTE | 2016-10-03 09:15 | Cardiology Follow-Up ---
Subjective Subjective Date of Service: Oct 03, 2016. Pt evaluation today including: conversation w/ patient, physical exam, chart review, lab review, review of studies, review of inpatient medication list Additional Details: Pt seen and examined, states that he is in significant hip pain. Denies cardiac complaint. Specifically denies cp, sob, palpitations, lightheadedness or dizziness. Tele reviewed: sinus rhythm with occasional a-pacing. Review of Systems Respiratory: No cough, No dyspnea at rest, No dyspnea on exertion, No hemoptysis, No problem reported, No see HPI, No shortness of breath, No sputum, No wheezing Cardiac: No PND, No chest pain, No claudication, No edema, No orthopnea, No palpitations, No problem reported, No see HPI Objective Vital Signs Last Vital Signs Documentation Date Time Temp Pulse Resp B/P Pulse Ox O2 Delivery O2 Flow Rate FiO2 10/03/16 07:31 36.7 61 18 151/69 98 Room Air 10/02/16 14:25 10 Physical Exam: General Appearance: WD/WN, + mild distress (secondary to pain) Eyes: bilateral eyes EOMI, bilateral eyes PERRL, bilateral eyes normal inspection ENT: normal ENT inspection, hearing grossly normal, pharynx normal Neck: supple, no adenopathy, thyroid normal, no JVD, no carotid bruits, trachea midline Respiratory/Chest: chest non-tender, lungs clear, normal breath sounds, no respiratory distress, no accessory muscle use Cardiovascular: regular rate, rhythm, no edema, no JVD, no murmur, + gallop/S4 Abdomen: normal bowel sounds, non tender, soft, no organomegaly, no pulsatile mass Extremities: no pedal edema, no calf tenderness Neurologic/Psychiatric: coat baster II-XII nml as tested, no motor/sensory deficits, alert, normal mood/affect, oriented x 3 Skin: normal color, warm/dry, no rash Lymphatic: no adenopathy Assessment and Plan 1. paroxysmal atrial flutter has remained in sinus tolerating increased sotalol dosage QTc stable no ventricular arrhythmias daily ecg on heparin gtt, ok to change back to pradaxa once ok with ortho 2. s/p hip surgery receiving pain control ok to go off monitor for PT cont to monitor on tele
[2016-10-03] MEDS ORDERED: NURSING VERBAL MED ORDER ONE (10:30)
--- NOTE | 2016-10-03 10:34 | Progress Note ---
Internal Med Progress Note Date of Service: Oct 03, 2016. Provider Documentation: SUBJECTIVE: Patient is c/o pain and numbness in left leg - surgical site Denies any palpitations, chest pain, SOB, nausea, vomiting Tele- Sinus rhythm OBJECTIVE: Vital Signs-as noted below Exam: General-AAOX3, no distress Neck-Supple, No JVD Lungs-AEBE, no wheezing, crackles Heart-S1, S2 normal, no murmurs Extremities-No edema Lab data as noted below. ASSESSMENT & PLAN: Assessment and Plan : ATRIAL FLUTTER WITH RVR : Now NSR Noted in perioperative setting when presented for planned L hip replacement Pradaxa has been held for 5 days for upcoming surgery HR up to 130s on presentation -> Given total 15 mg IV Lopressor -> Increased Sotalol to 80 mg PO BID -Cardiology on board. Appreciate inputs LEFT HIP OA POD # 1 -Pain mx per primary team -Orthopedics on board. HYPERTENSION -Stable -PRN hydralazine ordered for SBP >160 TACHY RENUKA SYNDROME S/P PACEMAKER -Mx as above HYPERLIPIDEMIA -Continue statin BPH -Continue Flomax VIT D DEFICIENCY -Continue Vit D supplementation FULL CODE per my discussion with the patient DISPOSITION Continue with tele monitoring Vital Signs: Date Time Temp Pulse Resp B/P Pulse Ox O2 Delivery O2 Flow Rate FiO2 10/03/16 07:31 36.7 61 18 151/69 98 Room Air 10/03/16 04:00 Room Air 10/03/16 03:27 36.4 61 17 122/63 95 Room Air 10/02/16 23:59 Room Air 10/02/16 23:34 37.0 58 18 125/66 95 Room Air 10/02/16 20:00 Room Air 10/02/16 19:43 36.9 90 20 121/69 97 Room Air 10/02/16 18:39 36.5 60 18 103/55 94 Room Air 10/02/16 17:39 36.5 61 16 105/54 94 Room Air 10/02/16 16:56 36.4 62 16 127/56 95 Room Air 10/02/16 16:39 36.4 60 16 160/72 96 Room Air 10/02/16 16:09 36.4 65 16 144/69 93 Room Air 10/02/16 16:00 96 Room Air 10/02/16 15:45 161/75 10/02/16 15:42 60 11 10/02/16 15:42 62 11 99 10/02/16 15:40 163/72 10/02/16 15:37 60 13 10/02/16 15:37 60 13 98 10/02/16 15:35 158/71 10/02/16 15:32 62 16 99 10/02/16 15:32 60 16 10/02/16 15:30 160/70 10/02/16 15:27 60 13 10/02/16 15:27 60 13 99 10/02/16 15:25 153/67 10/02/16 15:22 60 9 100 10/02/16 15:22 60 9 10/02/16 15:21 158/65 10/02/16 15:17 60 12 99 10/02/16 15:17 60 12 10/02/16 15:16 154/68 10/02/16 15:15 60 13 99 10/02/16 15:15 62 13 10/02/16 15:11 148/66 10/02/16 15:10 60 14 10/02/16 15:10 62 14 98 10/02/16 15:06 144/60 10/02/16 15:05 61 13 98 10/02/16 15:05 60 13 10/02/16 15:01 150/68 10/02/16 15:00 60 14 10/02/16 15:00 61 14 100 10/02/16 14:59 37 10/02/16 14:56 16 147/68 10/02/16 14:55 60 14 100 10/02/16 14:55 60 14 10/02/16 14:50 60 14 10/02/16 14:50 60 14 149/70 100 10/02/16 14:45 61 14 10/02/16 14:45 60 14 152/65 100 10/02/16 14:41 151/64 10/02/16 14:40 59 17 10/02/16 14:40 64 17 100 10/02/16 14:36 132/92 10/02/16 14:35 60 17 10/02/16 14:35 Room Air 10/02/16 14:35 60 17 100 10/02/16 14:30 68 17 10/02/16 14:30 61 17 137/84 100 10/02/16 14:26 129/66 10/02/16 14:25 36.6 63 16 129/66 100 Mask 10 Lab Results: Results Past 24 Hours Test 10/02/16 12:11 10/03/16 05:10 Range/Units Prothrombin Time 11.8 9.0-12.0 SECONDS Prothromb Time International Ratio 1.1 0.9-1.1 Activated Partial Thromboplast Time 27.5 26.4 21.0-31.0 SECONDS Partial Thromboplastin Ratio 1.1 1.0 White Blood Count 10.56 4.8-10.8 K/uL Red Blood Count 3.78 4.7-6.1 M/uL Hemoglobin 12.3 14.0-18.0 g/dL Hematocrit 35.2 42-52 % Mean Corpuscular Volume 93.1 80-100 fL Mean Corpuscular Hemoglobin 32.5 25-34 pg Mean Corpuscular Hemoglobin Concent 34.9 32-36 g/dl RDW Standard Deviation 41.7 36.4-46.3 fL RDW Coefficient of Variation 12.3 11.5-14.5 % Platelet Count 165 130-400 K/uL Mean Platelet Volume 9.6 7.4-10.4 fL Sodium Level 143 136-145 mmol/L Potassium Level 4.3 3.5-5.1 mmol/L Chloride Level 111 98-107 mmol/L Carbon Dioxide Level 22 21-32 mmol/L Anion Gap 10.0 3-11 mmol/L Blood Urea Nitrogen 21 7-18 mg/dl Creatinine 1.20 0.60-1.40 mg/dl Est Creatinine Clear Calc Drug Dose 49.8 ml/min Estimated GFR () 70.6 Estimated GFR (Non- 60.9 BUN/Creatinine Ratio 17.6 10-20 Random Glucose 116 70-99 mg/dl Calcium Level 8.4 8.5-10.1 mg/dl
[2016-10-03] MEDS ORDERED: KETOROLAC TROMETHAMINE 15 MG/ML VIAL IV. SCH (10:45)
[2016-10-03] MEDS ORDERED: HYDROmorphone INJ 0.5 MG/0.5 ML SYR IV SCH (10:45)
--- NOTE | 2016-10-03 10:52 | Orthopedic Progress Note ---
Orthopedic Progress Note Date of Service Oct 03, 2016. Subjective Post OP Day: 1 Reports: complaints (States the SCD seems to be bothering the LLE below his knee.), feeling well, pain controlled w PO medications, Denies: SOB, calf pain, chest pain, light headedness, nausea / vomiting Objective calves soft nontender, N/V intact, hip located, capillary refill less than 2 sec., dressing C/D/I, A&O x3, toes mobile Patient is lying comfortably in bed. Left calf is soft and nontender. Nurse was present during visit and the SCD was loosened and the strap for the abduction pillow was also loosened. Date Time Temp Pulse Resp B/P Pulse Ox O2 Delivery O2 Flow Rate FiO2 10/03/16 07:31 36.7 61 18 151/69 98 Room Air 10/03/16 04:00 Room Air 10/03/16 03:27 36.4 61 17 122/63 95 Room Air 10/02/16 23:59 Room Air 10/02/16 23:34 37.0 58 18 125/66 95 Room Air 10/02/16 20:00 Room Air 10/02/16 19:43 36.9 90 20 121/69 97 Room Air 10/02/16 18:39 36.5 60 18 103/55 94 Room Air 10/02/16 17:39 36.5 61 16 105/54 94 Room Air 10/02/16 16:56 36.4 62 16 127/56 95 Room Air 10/02/16 16:39 36.4 60 16 160/72 96 Room Air 10/02/16 16:09 36.4 65 16 144/69 93 Room Air 10/02/16 16:00 96 Room Air 10/02/16 15:45 161/75 10/02/16 15:42 60 11 10/02/16 15:42 62 11 99 10/02/16 15:40 163/72 10/02/16 15:37 60 13 10/02/16 15:37 60 13 98 10/02/16 15:35 158/71 10/02/16 15:32 62 16 99 10/02/16 15:32 60 16 10/02/16 15:30 160/70 10/02/16 15:27 60 13 10/02/16 15:27 60 13 99 10/02/16 15:25 153/67 10/02/16 15:22 60 9 100 10/02/16 15:22 60 9 10/02/16 15:21 158/65 10/02/16 15:17 60 12 99 10/02/16 15:17 60 12 10/02/16 15:16 154/68 10/02/16 15:15 60 13 99 10/02/16 15:15 62 13 10/02/16 15:11 148/66 10/02/16 15:10 60 14 10/02/16 15:10 62 14 98 10/02/16 15:06 144/60 10/02/16 15:05 61 13 98 10/02/16 15:05 60 13 10/02/16 15:01 150/68 10/02/16 15:00 60 14 10/02/16 15:00 61 14 100 10/02/16 14:59 37 10/02/16 14:56 16 147/68 10/02/16 14:55 60 14 100 10/02/16 14:55 60 14 10/02/16 14:50 60 14 10/02/16 14:50 60 14 149/70 100 10/02/16 14:45 61 14 10/02/16 14:45 60 14 152/65 100 10/02/16 14:41 151/64 10/02/16 14:40 59 17 10/02/16 14:40 64 17 100 10/02/16 14:36 132/92 10/02/16 14:35 60 17 10/02/16 14:35 Room Air 10/02/16 14:35 60 17 100 10/02/16 14:30 68 17 10/02/16 14:30 61 17 137/84 100 10/02/16 14:26 129/66 10/02/16 14:25 36.6 63 16 129/66 100 Mask 10 Laboratory Results 24 Hours: Test 10/02/16 12:11 10/03/16 05:10 Prothromb Time International Ratio 1.1 Prothrombin Time 11.8 SECONDS Hematocrit 35.2 % Hemoglobin 12.3 g/dL Assessment & Plan Assessment: POD #1 s/p Left MICHAEL Plan: PT/OT Will restart Pradaxa today per recommendation of cardiology. D/C planning. Inhouse Planning Pain Management: [place] (7.5/325 mg) DVT Prophylaxis: TEDs, SCDs, other (Pradaxa) Discharge Planning Discharge Planning: uncertain (Would like home with home health)
[2016-10-03] MEDS: PANTOprazole SOD 40 MG TAB PO SCH (11:23)
[2016-10-03] MEDS: MULTIVITAMIN TAB PO SCH (11:23)
[2016-10-03] MEDS: TAMSULOSIN HCL 0.4 MG CAP PO SCH (20:28)
[2016-10-03] MEDS: SENNA 8.6 MG TAB PO SCH (20:28)
[2016-10-03] MEDS: DABIGATRAN ELEXILATE 75 MG CAP PO SCH (20:28)
[2016-10-03] MEDS ORDERED: ASPIRIN 81 MG ECTAB PO SCH (21:00)
[2016-10-04 04:30] VITALS: BP 115/64; PULSE 59; TEMP 36.6; O2SAT 96
[2016-10-04 05:54] LABS: PARTIAL THROMBOPLASTIN RATIO 1.4
[2016-10-04 07:40] VITALS: BP 125/61; PULSE 60; TEMP 36.8; O2SAT 97
[2016-10-04] MEDS: MULTIVITAMIN TAB PO SCH (08:34)
[2016-10-04] MEDS: ATORVASTATIN 20 MG TAB PO SCH (08:34)
[2016-10-04] MEDS: DOCUSATE SODIUM 100 MG CAP PO SCH ×2 (08:34→21:09)
[2016-10-04] MEDS: FERROUS GLUCONATE 324 MG TAB PO SCH ×3 (08:34→17:39)
[2016-10-04] MEDS: PANTOprazole SOD 40 MG TAB PO SCH (08:34)
[2016-10-04] MEDS: DABIGATRAN ELEXILATE 75 MG CAP PO SCH ×2 (08:35→21:10)
[2016-10-04] MEDS: SOTALOL HCL 80 MG TAB PO SCH ×2 (08:35→17:02)
[2016-10-04] MEDS: CHOLECALCIFEROL 1000 INTER.UNIT TAB PO SCH (08:35)
[2016-10-04] MEDS: HYDROCODONE/ACETAMINOPHEN 7.5/325MG TAB PO PRN ×2 (08:57→21:11)
--- NOTE | 2016-10-04 10:01 | Orthopedic Progress Note ---
Orthopedic Progress Note Date of Service Oct 04, 2016. Subjective Post OP Day: 2 Reports: feeling well, pain controlled w PO medications, Denies: SOB, calf pain , chest pain, complaints, light headedness, nausea / vomiting Objective calves soft nontender, N/V intact, hip located, capillary refill less than 2 sec., dressing C/D/I, A&O x3, toes mobile Date Time Temp Pulse Resp B/P Pulse Ox O2 Delivery O2 Flow Rate FiO2 10/04/16 08:36 Room Air 10/04/16 07:40 36.8 60 18 125/61 97 Room Air 10/04/16 04:30 36.6 59 18 115/64 96 Room Air 10/04/16 04:00 Room Air 10/03/16 23:59 Room Air 10/03/16 23:47 36.7 61 18 121/63 97 Room Air 10/03/16 20:05 36.8 64 20 117/69 91 Room Air 10/03/16 20:00 Room Air 10/03/16 16:18 36.9 82 20 96/58 96 Nasal Cannula 2.0 10/03/16 16:01 Room Air 10/03/16 12:51 62 99 10/03/16 12:00 Room Air 10/03/16 11:35 36.6 67 20 159/54 97 Room Air Assessment & Plan Assessment: POD #2 s/p Left MICHAEL Plan: PT/OT Will restart Pradaxa today per recommendation of cardiology. D/C planning--patient may be moved back to ortho floor today. If he continues to do well, plan for d/c home tomorrow, 3..17. Inhouse Planning Pain Management: [place] (7.5/325 mg) DVT Prophylaxis: TEDs, SCDs, other (Pradaxa) Discharge Planning Discharge Planning: home with home health (Tomorrow if he continues to do well. ) DVT Prophylaxis: TEDs, other (Pradaxa)
--- NOTE | 2016-10-04 11:07 | Progress Note ---
Internal Med Progress Note Date of Service: Oct 04, 2016. Provider Documentation: SUBJECTIVE: Patient is doing much better today. Pain is well controlled Denies any palpitations, chest pain, SOB, nausea, vomiting Tele- NSR OBJECTIVE: Vital Signs-as noted below Exam: General-AAOX3, no distress Neck-Supple, No JVD Lungs-AEBE, no wheezing, crackles Heart-S1, S2 normal, no murmurs Extremities-S/P Left hip replacement Lab data as noted below. ASSESSMENT & PLAN: Assessment and Plan : ATRIAL FLUTTER WITH RVR --> NSR Noted in perioperative setting when presented for planned L hip replacement Pradaxa had been held for 5 days prior to surgery ----> Restarted post operatively on 10/03/16 evening per cardio/OK with ortho S/P 15 mg IV Lopressor in ED for HR 130s on presentation ---> Increased Sotalol to 80 mg PO BID--> Continue -Cardiology on board. Appreciate inputs. LEFT HIP OA POD # 2 -Pain mx per primary team -Orthopedics on board. HYPERTENSION -Stable -PRN hydralazine ordered for SBP >160 TACHY RENUKA SYNDROME S/P PACEMAKER -Mx as above HYPERLIPIDEMIA -Continue statin BPH -Continue Flomax VIT D DEFICIENCY -Continue Vit D supplementation FULL CODE per my discussion with the patient DISPOSITION Continue with tele monitoring Vital Signs: Date Time Temp Pulse Resp B/P Pulse Ox O2 Delivery O2 Flow Rate FiO2 10/04/16 08:36 Room Air 10/04/16 07:40 36.8 60 18 125/61 97 Room Air 10/04/16 04:30 36.6 59 18 115/64 96 Room Air 10/04/16 04:00 Room Air 10/03/16 23:59 Room Air 10/03/16 23:47 36.7 61 18 121/63 97 Room Air 10/03/16 20:05 36.8 64 20 117/69 91 Room Air 10/03/16 20:00 Room Air 10/03/16 16:18 36.9 82 20 96/58 96 Nasal Cannula 2.0 10/03/16 16:01 Room Air 10/03/16 12:51 62 99 10/03/16 12:00 Room Air 10/03/16 11:35 36.6 67 20 159/54 97 Room Air Lab Results: Results Past 24 Hours Test 10/04/16 05:30 Range/Units Activated Partial Thromboplast Time 35.7 21.0-31.0 SECONDS Partial Thromboplastin Ratio 1.4
[2016-10-04 12:30] VITALS: BP 125/55; PULSE 70; TEMP 37.1; O2SAT 100
--- NOTE | 2016-10-04 13:01 | Cardiology Follow-Up ---
Subjective Subjective Date of Service: Oct 04, 2016. Pt evaluation today including: conversation w/ patient, conversation w/ family , chart review, lab review, review of studies, review of inpatient medication list Additional Details: Pt seen and examined, oob in chair. States that he's feeling much better today. Hip pain improved. Denies cp, sob, palpitations, lightheadedness or dizziness. Tele reviewed: sinus rhythm without arrhythmia or significant ectopy Review of Systems Respiratory: No cough, No dyspnea at rest, No dyspnea on exertion, No hemoptysis, No problem reported, No see HPI, No shortness of breath, No sputum, No wheezing Cardiac: No PND, No chest pain, No claudication, No edema, No orthopnea, No palpitations, No problem reported, No see HPI Objective Vital Signs Last Vital Signs Documentation Date Time Temp Pulse Resp B/P Pulse Ox O2 Delivery O2 Flow Rate FiO2 10/04/16 12:30 37.1 70 20 125/55 100 Room Air 10/03/16 16:18 2.0 Physical Exam: General Appearance: WD/WN, + mild distress ENT: normal ENT inspection, hearing grossly normal, pharynx normal Neck: supple, no adenopathy, thyroid normal, no JVD, no carotid bruits, trachea midline Respiratory/Chest: chest non-tender, lungs clear, normal breath sounds, no respiratory distress, no accessory muscle use Cardiovascular: regular rate, rhythm, no edema, no JVD, no murmur, + gallop/S4 Abdomen: normal bowel sounds, non tender, soft, no organomegaly, no pulsatile mass Extremities: no pedal edema, no calf tenderness Neurologic/Psychiatric: filteration operator II-XII nml as tested, no motor/sensory deficits, alert, normal mood/affect, oriented x 3 Skin: normal color, warm/dry, no rash Lymphatic: no adenopathy Assessment and Plan 1. paroxysmal atrial flutter has remained in sinus tolerating increased sotalol dosage QTc stable no ventricular arrhythmias daily ecg, today's pending heparin d/c'ed, pradaxa restarted has now received 6 doses of higher dose, no need for continued telemetry monitoring ok to d/c tele and transfer to ortho floor no further cardiac testing or restrictions at this point ok to d/c to home as per ortho 2. s/p hip surgery receiving pain control ok to go off monitor for PT ok to transfer to ortho floor or to home from cardiac standpoint
[2016-10-04 16:00] VITALS: BP 153/69; PULSE 64; TEMP 37.3; O2SAT 97
[2016-10-04] MEDS: TAMSULOSIN HCL 0.4 MG CAP PO SCH (21:09)
[2016-10-04] MEDS: SENNA 8.6 MG TAB PO SCH (21:10)
[2016-10-04 22:50] VITALS: BP 123/64; PULSE 65; TEMP 37.3; O2SAT 96
[2016-10-05 05:31] LABS: HEMATOCRIT 32.7 % (42-52); MEAN CELL VOLUME 94.2 fL (80-100); MEAN CORPUSCULAR HEMOGLOBIN 32.6 pg (25-34); MEAN CORPUSCULAR HGB CONC 34.6 g/dl (32-36); PLATELET COUNT 125 K/uL (130-400); RED BLOOD COUNT 3.47 M/uL (4.7-6.1); WHITE BLOOD COUNT 6.83 K/uL (4.8-10.8)
[2016-10-05 05:41] LABS: PARTIAL THROMBOPLASTIN RATIO 1.5
[2016-10-05 07:04] VITALS: BP 118/77; PULSE 78; TEMP 36.7; O2SAT 99
--- NOTE | 2016-10-05 07:28 | Anesthesiology Progress Note ---
Anesthesia Post Op Note Date & Time Oct 05, 2016 at 07:27 Vital Signs Pain Intensity: 6.0 Vital Signs Past 12 Hours Date Time Temp Pulse Resp B/P Pulse Ox O2 Delivery O2 Flow Rate FiO2 10/05/16 07:04 36.7 78 20 118/77 99 Room Air 10/04/16 23:30 Room Air 10/04/16 22:50 37.3 65 18 123/64 96 Room Air Notes Mental Status: alert / awake / arousable, participated in evaluation Pt Amnestic to Procedure: Yes Nausea / Vomiting: adequately controlled Pain: adequately controlled Airway Patency, RR, SpO2: stable & adequate BP & HR: stable & adequate Hydration State: stable & adequate Neuraxial Anesthesia: was administered, sensory block resolved Anesthetic Complications: no major complications apparent
--- NOTE | 2016-10-05 07:52 | Orthopedic Progress Note ---
Orthopedic Progress Note Date of Service Oct 05, 2016. Subjective Post OP Day: 3 Reports: feeling well, pain controlled w PO medications, Denies: SOB, calf pain , chest pain, complaints, light headedness, nausea / vomiting Additional Notes: States he's walked the halls on the floor a few times. Overall, doing well. Objective calves soft nontender, N/V intact, hip located, capillary refill less than 2 sec., dressing C/D/I, A&O x3, toes mobile Date Time Temp Pulse Resp B/P Pulse Ox O2 Delivery O2 Flow Rate FiO2 10/05/16 07:04 36.7 78 20 118/77 99 Room Air 10/04/16 23:30 Room Air 10/04/16 22:50 37.3 65 18 123/64 96 Room Air 10/04/16 16:00 37.3 64 16 153/69 97 Room Air 10/04/16 16:00 97 Room Air 10/04/16 15:20 37.1 70 20 100 2.0 10/04/16 12:30 37.1 70 20 125/55 100 Room Air 10/04/16 12:10 Room Air 10/04/16 08:36 Room Air Laboratory Results 24 Hours: Test 10/05/16 05:23 Hematocrit 32.7 % Hemoglobin 11.3 g/dL Assessment & Plan Assessment: POD #3 s/p Left MICHAEL Plan: PT/OT Will restart Pradaxa today per recommendation of cardiology. D/C planning--home with home health today after PT Inhouse Planning Pain Management: [place] (7.5/325 mg) DVT Prophylaxis: TEDs, SCDs, other (Pradaxa) Discharge Planning Discharge Planning: home with home health (Tomorrow if he continues to do well. ) DVT Prophylaxis: TEDs, other (Pradaxa)
[2016-10-05] MEDS ORDERED: HYDR-3983 PO (07:57)
[2016-10-05] MEDS ORDERED: ONDA8TAB6 PO (07:57)
--- NOTE | 2016-10-05 07:59 | Discharge Instructions ---
Discharge Instructions Date of Service Oct 05, 2016. Admission Reason for Admission: Left Hip Osteoarthritis Discharge Discharge Diagnosis / Problem: left hip osteoarthritis Discharge Goals Goal(s): Decrease discomfort, Improve function Activity Recommendations Activity Limitations: as noted below Lifting Limitations: until after follow-up appointment Exercise/Sports Limitations: until after follow-up appointment May Resume Sexual Activity: when tolerated Shower/Bathe: keep incision dry (Keep Silverlon dressing on for 7 days.) Driving or Machine Use: When cleared by Dr. Hughes's clinic. Weightbearing Status: Left weightbearing (as tolerated) . Instructions / Follow-Up Instructions / Follow-Up ACTIVITY RECOMMENDATIONS: SELF CARE INSTRUCTIONS AFTER TOTAL HIP REPLACEMENT Until the incision and soft tissues around your hip have healed, there is a possibility that the hip prosthesis could dislocate. A. Observe the following precautions to prevent dislocation: 1. Don't bend your hip greater than 90 degrees. 2. Avoid crossing your legs or ankles while standing or lying. 3. Sit with your feet placed 6 inches apart. 4. When sitting, keep your knees below your hips. Sit on a firm surface, avoid deep, soft chairs and couches. Use an elevated toilet seat in the bathroom. 5. Don't bend over at the waist. Use a long handled shoehorn and a sock aid to help you put on your shoes and socks. A senior talent management consultant can help you milk pickup truck driver objects that are too high or too low to reach. 6. Keep car riding to a minimum for at least one month after surgery. B. Your balance may be shaky for a while. Use crutches or a walker until directed by your doctor. C. Use hand rails when walking on stairs. D. Wear low heeled shoes with non-slip soles. E. Be sure that your floors are free of things that could trip you - throw rugs , electrical cords, small objects. Avoid wet and waxed floors, especially with crutches and canes. F. Try to walk several times a day with rest periods between. G. Continue with all the exercises taught to you in the hospital. Again, make walking a part of your daily routine. H. It is okay to shower if minimal to no drainage from incision. No baths. Do not soak wound. I. Physical Therapy as instructed by your Physician. Giuliano Bowman- This is a large adhesive bandage that contains silver ions. This helps your incision heal by fighting off bacteria and protecting it from the outside environment. You are permitted to shower with this dressing. This will remain on your incision for 7 days and then should be removed. Some visible blood or drainage through the dressing window is normal. If there is significant drainage or leaking noted before the 7 days notify your doctor's office immediately. Once removed, keep incision clean and dry. If there is any drainage or redness noted, please call your surgeon. SPECIAL CARE INSTRUCTIONS: VERY IMPORTANT TO READ AND REVIEW A. You may still be at risk for phlebitis and blood clots. 1. Wear surgical stockings (HERMINIA hose) for one month, 20 hours daily, after surgery to improve circulation and reduce swelling. 2. Take Pradaxa (blood thinning medications), as directed by your doctor. 3. Have a pro-time (blood test) drawn according to your doctor's instructions. B. We encourage and will assist you in choosing a home-health agency of your choice. Home health nurses and therapists will monitor your temperature, wound healing and progress in exercise and walking. Home health nurses may also draw the blood for the pro-time test. They may instruct you in decreasing or increasing the amount of Coumadin you take. C. You must take antibiotics before having dental work, bladder, bowel and other surgery. Your doctor will provide you with a permanent card to carry describing precautions. D. Call [facility] if you have a temperature of 101 or greater, redness or swelling around the incision, cloudy drainage from incision, or sudden increase in pain in your hip, not relieved by your regular pain medication. E. Please call the office at if you have any concerns or questions about your operation or recovery. FOLLOW UP VISIT: If appointment is not already scheduled: Please call [facility] to make a follow-up appointment for one month after your surgery at . Current Hospital Diet Patient's current hospital diet: AHA Diet (Heart Healthy) Discharge Diet Recommended Diet: Regular Diet Procedures Procedures Performed: Left total hip arthroplasty- Uncemented Pending Studies Studies pending at discharge: no Laboratory Results Hemoglobin A1c Test 09/21/16 10:06 Range/Units Estimated Average Glucose 105 mg/dl Hemoglobin A1c 5.3 4.5-5.6 % Medical Emergencies . Who to Call and When: Medical Emergencies: If at any time you feel your situation is an emergency, please call 911 immediately. . Non-Emergent Contact Non-Emergency issues call your: Surgeon Call Non-Emergent contact if: temperature is above 101, your pain is not controlled, your pain is worsening, wound has increased drainage, wound has increased redness, wound has increased pain . "Provider Documentation" section prepared by Ashish Santos. VTE Core Measure Inpt VTE Proph given/why not?: Other Anticoagulation (heparin infusion), T.E.D. Stockings
[2016-10-05] MEDS: SOTALOL HCL 80 MG TAB PO SCH (08:29)
[2016-10-05] MEDS: MULTIVITAMIN TAB PO SCH (08:29)
[2016-10-05] MEDS: FERROUS GLUCONATE 324 MG TAB PO SCH (08:29)
[2016-10-05] MEDS: ATORVASTATIN 20 MG TAB PO SCH (08:29)
[2016-10-05] MEDS: PANTOprazole SOD 40 MG TAB PO SCH (08:29)
[2016-10-05] MEDS: DOCUSATE SODIUM 100 MG CAP PO SCH (08:30)
[2016-10-05] MEDS: DABIGATRAN ELEXILATE 75 MG CAP PO SCH (08:30)
[2016-10-05] MEDS: HYDROCODONE/ACETAMINOPHEN 7.5/325MG TAB PO PRN (08:32)
[2016-10-05 08:59] VITALS: BP 118/77; PULSE 78; TEMP 36.7; O2SAT 99
[2016-10-05] MEDS ORDERED: SOTA80TA PO (10:09)
--- NOTE | 2016-11-12 08:41 | EDITING REQUIRED CODING QUERY ---
CQSUPPORTING DIAGNOSIS NEEDED A supporting diagnosis is required for the test/procedure performed on this patient in order for us to be reimbursed by the patient's insurance. Please provide a supporting diagnosis for the following test/procedure listed below next to the test name along with your signature. *If there is no additional diagnosis for this patient that would support the following test/procedure please document that below next to the test/procedure. Test(s)/Procedure(s) that require a supporting diagnosis: DOS 09/21/16 GLYCATED HEMOGLOBIN ORDERED BY JOSÉ MIGUEL KEENAN Provider Signature: Date: Thank you Stephania Gould Health Information Management Once completed, please kindly fax back to [phone] For questions please call [phone]
== END 2016-10-05 11:08 | disposition home health service (06) | DRG 470 ==
LOC: CANRESERV → ENRESERVTM → ENRESERVDT → C.ACU 09:04 → C.2T 11:39 → C.3E 10-04 16:03
PROC: 0SRB0JA Replacement of Left Hip Joint with Synthetic Substitute, Uncemented, Open Approach (ICD-10-PCS; principal; 2016-10-02 12:00)
DX: M16.12 Unilateral primary osteoarthritis, left hip (principal); I48.92 Unspecified atrial flutter; N40.0 Benign prostatic hyperplasia without lower urinary tract symptoms; I48.0 Paroxysmal atrial fibrillation; I10 Essential (primary) hypertension; E78.5 Hyperlipidemia, unspecified; Z87.891 Personal history of nicotine dependence; Z79.01 Long term (current) use of anticoagulants; Z96.641 Presence of right artificial hip joint; F41.9 Anxiety disorder, unspecified; E55.9 Vitamin D deficiency, unspecified; R79.1 Abnormal coagulation profile

== ENCOUNTER → 2017-12-13 | Day surgery (SDC) | payer OTHER ==
[2017-11-23 10:51] VITALS: Ht 167.6 cm; Wt 65.9 kg
[~2017-12-13] VITALS: Ht 167.6 cm; Wt 65.9 kg
[~2017-12-13] MED LIST changes: +500ML BSS 0.3ML EPI 1:1000PF IRRIG ONE; +ACETAMINOPHEN 325 MG TAB PO PRN; -ACETAMINOPHEN 500 MG TAB PO SCH; +AMVISC PLUS 0.8ML SYRINGE INT OCU ONE; +ATROPINE SULFATE 0.1 MG/ML 5ML SYR IV PRN; +BRIMONIDINE TART 0.2% OP SOLN PER DROP CHARGE ONE; +BSS FLUSH ONE; -BTP80 PO; -BUPIVACAINE 0.5 % 5 MG/1 ML PF 10ML VIAL ONE; -DEXAMETHASONE 4 MG TAB PO SCH; -DILT-113 PO; +ENDOCOAT 0.85ML SYRINGE INT OCU ONE; +EpHEDrine SULFATE INJ 50 MG/ML AMP IV PRN; +EpINEphrine INJ 1MG/ML AMP 1 MG/ML AMP ONE; -FAMOTIDINE 20 MG TAB PO SCH; -FLM4 PO; -IBUP-1050 PO; +IBUP1CAP9 PO; -LACTATED RINGER'S 1000ML 1,000 ML IV SCH; -LACTATED RINGER'S 1000ML 500 ML IV ONE; +LACTATED RINGER'S 1000ML 500 ML IV SCH; +LIDOCAINE 4% OP SOLN DROP CHARGE ONE; +LIDOCAINE 4% OP SOLN DROP CHARGE OPL SCH; +LIDOCAINE HCL 1% MPF 2 ML VIAL ONE; +MELO-84 PO; -MISSING PHYSICIAN SIGNATURE ON ORDER SCH; +MIX: 3ML BSS AND 1ML EPI(PF) TOP ONE; +MOXIFLOXACIN OPH SOLN PER DROP CHARGE ONE; +PHENYLEPHRINE 100MCG/ML 5ML SYR IV PRN; +POVIDONE-IODINE OP SOLN 30 ML BTL ONE; +PROPARACAINE 0.5% OP SOLN PER DROP CHARGE OPL SCH; +PROPOFOL IV EMULSION 10 MG/ML 20 ML VIAL ONE; -ROPIVACAINE 5MG/ML 30 ML 150 MG, BUPIVACAINE/EPINEPHR 0.5% MPF 30 ML, KETOROLAC TROMETH... INFIL SCH; +SOTA80TA PO; +TAMS0.4C38 PO; +TOBRAMYCIN/DEXAMETHASONE OPH OINT PER APPLN CHARGE ONE; -VANCOMYCIN 1GM/270ML NSS 270 ML IV SCH; -VANCOMYCIN INJ 1,100 MG in SODIUM CHLORIDE 0.9% 250ML 250 ML IV SCH
[2017-12-13] MEDS: PHENYLEPHRINE HCL 2.5% OP SOLN PER DROP CHARGE OPL SCH ×2 (08:08→08:13)
[2017-12-13] MEDS: TROPICAMIDE 1% OP SOLN PER DROP CHARGE OPL SCH ×2 (08:09→08:14)
[2017-12-13] MEDS: CYCLOPENTOLATE HCL 1% OP SOLN PER DROP CHARGE OPL SCH ×2 (08:10→08:15)
[2017-12-13] MEDS: KETOROLAC 0.5% OP SOLN PER DROP CHARGE OPL SCH ×2 (08:11→08:16)
[2017-12-13] MEDS: MOXIFLOXACIN OPH SOLN PER DROP CHARGE OPL SCH ×2 (08:12→08:22)
--- NOTE | 2017-12-13 09:33 | [facility] Operative Report ---
Operative Report Operative Date December 13, 2017. Pre-Operative Diagnosis Cataract Left Eye Post-Operative Diagnosis Same Procedure(s) Performed Left Cataract Phacoemulsification With Intraocular Lens Implant Surgeon Dr. Griffith Ostomy Care Nurse Surgeon(s) None Estimated Blood Loss 0ml Findings cataract left eye Fluids see anesthesia record Specimens None Drains None Anesthesia Type MAC Complication(s) none Disposition no Recovery Room / PACU Indications decreased vision left eye Description of Procedure After informed consent was obtained in the holding area the patient was wheeled back to the operating room where cardiac monitoring leads and oxygen by nasal cannula was administered by Anesthesia. Gentle IV sedation was given, and the patient's left eye was prepped and draped in usual sterile fashion. A wire lid speculum was placed into the left eye and the operating microscope was swung into position. Using 0.12 forceps and a Supersharp blade a paracentesis port was made 2 o'clock hours away from the 3 o'clock position of the patient's left eye. 1% non-preserved Lidocaine was then injected into the anterior chamber for anesthesia. A 2.0 mm keratotome blade was then used to make a shelved clear corneal incision at the 3 o'clock position of the left eye. Amvisc was injected into the anterior chamber and a cystotome and Utrata forceps were used to perform a curvilinear capsulorrhexis. BSS on a hydrodissection cannula was used to hydrodissect the lens nucleus away from the capsular bag. The phacoemulsification handpiece was then used in a stop and chop fashion to remove the lens nucleus. The irrigation and aspiration handpiece was then used to remove the residual cortical material. Amvisc was injected into the capsular bag and anterior chamber and a Bausch [employer] Lomb MX60E 23.5 Diopter intraocular lens was injected into the capsular bag. Irrigation and aspiration handpiece was used to remove the residual viscoelastic material. The wounds were hydrated and noted to be watertight. The wire lid speculum was removed from the eye. Vigamox, Brimonidine, and TobraDex ointment were placed on the eye and it was shielded. It should be noted that EndoCoat was used extensively during the case to protect the cornea endothelium. DISPOSITION: The patient tolerated the procedure well and was wheeled to the post anesthesia care unit in stable condition. I attest to the content of the Intraoperative Record and any orders documented therein. Any exceptions are noted below. I attest to the content of the Intraoperative Record and any orders documented therein. Any exceptions are noted below.
--- NOTE | 2017-12-13 09:35 | Discharge Instructions-SurgCtr ---
Discharge Instructions Date of Service December 13, 2017. Visit Reason for Visit: Cataract Left Eye Discharge Discharge Diagnosis / Problem: cataract left eye Discharge Goals Goal(s): Improve function Activity Recommendations Activity Limitations: per Instructions/Follow-up section Lifting Limitations: no more than 5 pounds Anesthesia . Post Anesthesia Instructions: If you have had General Anesthesia or IV Sedation: * Do not drive today. * Resume driving when surgeon permits. * Do not make important decisions or sign legal documents today. * Call surgeon for: 1. Temperature elevations greater than 101 degrees F. 2. Uncontrollable pain. 3. Excessive bleeding. 4. Persistent nausea and vomiting. 5. Medication intolerance (nausea, vomiting or rash). * For nausea and vomiting use only clear liquids such as: tea, soda, bouillon until nausea subsides, then gradually increase diet as tolerated. * If you have any concerns or questions, call your surgeon's office. If physician is unavailable and it is an emergency, call 911 or go to the nearest emergency room. . Instructions / Follow-Up Instructions / Follow-Up ACTIVITY RECOMMENDATIONS: * Light activities * You may walk outside, read, watch television. * Mild irritation and blurred vision are common for the first few days, redness around the white part of the eye is common. MEDICATIONS: Resume previous medications unless instructed otherwise by your surgeon. Eye drops (today and tomorrow): Polytrim - one drop in operative eye every 2 hours while awake Prednisolone 1% - one drop in operative eye every 2 hours while awake Ilevro - one drop operative eye 1 times daily SPECIAL CARE INSTRUCTIONS: * If any problems or concerns, please call Dr. Griffith's office at . * Keep plastic shield taped over eye to sleep at night. * Keep plastic shield taped over eye except to administer eye drops. * Keep plastic shield on until office visit the following day. FOLLOW UP VISIT: Follow-up with Dr. Griffith in the [place] office as scheduled. If not already scheduled, please call the office at . Diet Recommendations Home Diet: resume previous diet Procedures Procedures Performed: Left Cataract Phacoemulsification With Intraocular Lens Implant Pending Studies Studies pending at discharge: no Medical Emergencies . Who to Call and When: Medical Emergencies: If at any time you feel your situation is an emergency, please call 911 immediately. . Non-Emergent Contact Non-Emergency issues call your: Equipment Processor . . "Provider Documentation" section prepared by Tavares Griffith. .
[2017-12-13 09:55] VITALS: BP 126/70; PULSE 61; O2SAT 98
--- NOTE | 2017-12-13 10:35 | Anesthesia Progress Nt - [facility] ---
Anesthesia Post Op Note Date & Time December 13, 2017 at 10:34 Vital Signs Pain Intensity: 0 Vital Signs Past 12 Hours Date Time Temp Pulse Resp B/P (MAP) Pulse Ox O2 Delivery O2 Flow Rate FiO2 12/13/17 09:55 61 18 126/70 (88) 98 Room Air 12/13/17 09:36 36.6 63 16 124/70 (88) 98 Room Air 12/13/17 07:59 36.7 64 20 149/82 (104) 99 Notes Mental Status: alert / awake / arousable, participated in evaluation Pt Amnestic to Procedure: Yes Nausea / Vomiting: adequately controlled Pain: adequately controlled Airway Patency, RR, SpO2: stable & adequate BP & HR: stable & adequate Hydration State: stable & adequate Anesthetic Complications: no major complications apparent
== END | disposition home or self-care (01) ==
LOC: X.SURG 07:37
PROVIDERS: ATTEND Ophthalmology
DX: H25.12 Age-related nuclear cataract, left eye (principal); I48.91 Unspecified atrial fibrillation; I51.9 Heart disease, unspecified; M19.90 Unspecified osteoarthritis, unspecified site; Z95.0 Presence of cardiac pacemaker; Z87.891 Personal history of nicotine dependence; Z79.899 Other long term (current) drug therapy; Z88.2 Allergy status to sulfonamides; Z88.1 Allergy status to other antibiotic agents; Z88.8 Allergy status to other drugs, medicaments and biological substances